=== PATIENT | male | born 1995 | race Caucasian/White ===

== ENCOUNTER 2022-08-08 10:05 | Outpatient (CLI) | payer BC | END 2022-08-08 10:06 | disposition home or self-care (01) | LOC: CSHMRI 10:05 | PROVIDERS: ATTEND Neurological Surgery | DX: M54.16 Radiculopathy, lumbar region (principal); Z98.890 Other specified postprocedural states; M43.17 Spondylolisthesis, lumbosacral region | CPT/HCPCS: 72120; 72148 ==